=== PATIENT | female | born 1990 | race Caucasian/White ===

== ENCOUNTER 2021-01-21 16:38 | Inpatient (IN) | payer BC, OTHER ==
[~2021-01-21] VITALS: Ht 160 cm; Wt 86.2 kg
[2021-01-21 17:04] LABS: HEMOGLOBIN 12.4 gm/dl (12.3-15.3); RED BLOOD COUNT 3.68 M/UL (4.00-5.10); WHITE BLOOD COUNT 9.7 K/UL (4.5-11.0)
[2021-01-21] MEDS ORDERED: PRENATAL VITAM1 EAC3 PO (19:25)
[2021-01-22] MEDS ORDERED: IBUPROFEN600 MG PO (14:17)
[2021-01-22] MEDS ORDERED: DOCUSATE SODIU100 MG PO (14:17)
[2021-01-22] MEDS ORDERED: HYDROCODON-ACE1 EAC4 PO (14:17)
[2021-01-23 06:16] LABS: HEMOGLOBIN 10.3 gm/dl (12.3-15.3)
== END 2021-01-23 17:16 | disposition home or self-care (01) | DRG 807 ==
LOC: OB 16:38
PROVIDERS: Obstetrics & Gynecology; ADMIT Obstetrics & Gynecology
PROC: 10E0XZZ Delivery of Products of Conception, External Approach (ICD-10-PCS; principal; 2021-01-21)
PROC: 0KQM0ZZ Repair Perineum Muscle, Open Approach (ICD-10-PCS; 2021-01-21)
PROC: 3E033VJ Introduction of Other Hormone into Peripheral Vein, Percutaneous Approach (ICD-10-PCS; 2021-01-21)
PROC: 10H07YZ Insertion of Other Device into Products of Conception, Via Natural or Artificial Opening (ICD-10-PCS; 2021-01-21)
PROC: 10907ZC Drainage of Amniotic Fluid, Therapeutic from Products of Conception, Via Natural or Artificial Opening (ICD-10-PCS; 2021-01-21)
DX: O24.420 Gestational diabetes mellitus in childbirth, diet controlled (principal); Z37.0 Single live birth; O99.02 Anemia complicating childbirth; D63.8 Anemia in other chronic diseases classified elsewhere; O70.1 Second degree perineal laceration during delivery; Z3A.39 39 weeks gestation of pregnancy
CPT/HCPCS: 36415; 36600; 51702; 81001; 82800; 82962; 85014; 85018; 85025; J2590; J2795; J7030; J7120; U0003